=== PATIENT | female | born 1945 | race Caucasian/White ===

== ENCOUNTER 2017-03-09 00:12 | Inpatient (IN) | payer OTHER ==
--- NOTE | 2017-03-09 00:20 | CPEKG ---
Heart Rate: 61 RR Interval: 984 P-R Interval: 200 QRSD Interval: 68 QT Interval: 448 QTC Interval: 452 P [place]: 50 QRS [place]: 32 T Wave [place]: 78 EKG Severity - BORDERLINE ECG - EKG Impression: SINUS RHYTHM EKG Impression: BORDERLINE R WAVE PROGRESSION, ANTERIOR LEADS EKG Impression: MINIMAL ST DEPRESSION, LATERAL LEADS EKG Impression: BORDERLINE ST ELEVATION, c/w STEMI Electronically Signed By: Carlyle Barnard 09-Mar-2017 06:11:46
[2017-03-09] MEDS ORDERED: LIDOCAINE 1% 300 MG/30 ML SDV ONE (00:22)
[2017-03-09] MEDS ORDERED: MIDAZOLAM 2 MG/2 ML VIAL ONE (00:22)
[2017-03-09] MEDS ORDERED: IOPAMIDOL (ISOVUE-370) 150 ML BTL IV ONE (00:22)
[2017-03-09] MEDS ORDERED: fentaNYL 100 MCG/2 ML INJ ONE (00:22)
--- NOTE | 2017-03-09 00:28 | EDPHY ---
H & P Time Seen by Provider: 03/09/17 00:24 HPI/ROS: Chief Complaint: Chest pain HPI: 71-year-old woman who is been in [place] visiting from [facility] for the last 2 days. Tonight when she developed substernal chest pain radiating to her left shoulder in her back. At worst it was at 8 to 9/10. She did have some nausea associated with this. EMS was called and noticed some concerning changes on her ECG. She does not have a history of similar pain in the past. She does not smoke. She does not have a family history of coronary artery disease. No history of hypertension or hyperlipidemia. She was given aspirin 324 mg and nitroglycerin 3 sublingual by EMS. Helicopter was called. They have given her 150 mcg of fentanyl and 4 mg of morphine and started her on a nitroglycerin drip at 50 micrograms/minute. Cardiac alert was activated by EMS. On arrival patient states her pain is a 3/10. Denies any shortness of breath. Pain right now is primarily in her left arm. ROS: 10 point Review of Systems is negative except as noted in the HPI. PMH: GERD, lupus, hypothyroidism Medications: Nexium, Synthroid Allergies: Codeine, epinephrine, penicillin Social History: Has never smoked, rare alcohol, no recreational drug use Family History: Father and mother both of lung cancer in her 60s and 70s. No family history of coronary artery disease. Physical Exam: Gen: Awake, Alert, No Distress HEENT: Nose: no rhinorrhea Eyes: PERRLA, EOMI Mouth: Moist mucosa Neck: Supple, no JVD Chest: nontender, lungs clear to auscultation Heart: S1, S2 normal, no murmur Abd: Soft, non-tender, no guarding Back: no CVA tenderness, no midline tenderness Ext: no edema, non-tender Skin: no rash Neuro: CN II-XII intact, Sensation grossly intact, Strength 5/5 in bilateral upper and lower extremities Constitutional: Initial Vital Signs Temperature (C) 36.8 C 03/09/17 00:12 Heart Rate 66 03/09/17 00:12 Respiratory Rate 16 03/09/17 00:12 Blood Pressure 146/80 H 03/09/17 00:12 O2 Sat (%) 97 03/09/17 00:12 O2 Delivery Mode Nasal Cannula O2 (L/minute) 2 Allergies/Adverse Reactions: codeine Allergy (Verified 03/09/17 00:24) epinephrine Allergy (Verified 03/09/17 00:19) Penicillins Allergy (Verified 03/09/17 00:24) Home Medications: Medication Instructions Recorded Librax (*) 03/09/17 Nexium 03/09/17 Tenormin 25 mg (*) 03/09/17 Medical Decision Making - Diagnostics EKG Interpretation: ECG time 0018, sinus rhythm with a rate of 61, normal axis, there is ST elevation greater than 2 mm in leads V2 through V4 with depression in lead 1 and aVL and V6 consistent with acute STEMI. Imaging Results: Chest x-ray shows some cephalization, aortic arch appears normal, no infiltrate. Interpreted by me. Imaging: I viewed and interpreted images myself ED Course/Re-evaluation: Patient arrived as a cardiac alert. Within tenderness the patient's arrival Dr. juwan jimenez was at the bedside. ECG is noted consistent with an acute anterior infarct. Patient to go to the medical laboratory assistant under Dr. Kemp here. She is artery received aspirin by EMS. Her pain is improved. Departure - Departure Disposition: [facility] Inpatient Acute Clinical Impression: STEMI (ST elevation myocardial infarction) Condition: Serious Referrals: Patient,NotPresent [Primary Care Provider] - As per Instructions
[2017-03-09] MEDS ORDERED: ONDANSETRON 4 MG/2 ML VIAL ONE (00:42)
[2017-03-09] MEDS ORDERED: BIVALIRUDIN 250 MG/5 ML VIAL IV ONE (00:52)
[2017-03-09 00:59] LABS: ANION GAP 15 mEq/L (8-16); CALCIUM 9.4 mg/dL (8.5-10.4); CARBON DIOXIDE 21 mEq/l (22-31); CHLORIDE 109 mEq/L (97-110); CREATININE 0.7 mg/dL (0.6-1.0); GLOMERULAR FILTRATION RATE > 60; GLUCOSE 158 mg/dL (70-100); POTASSIUM 3.5 mEq/L (3.5-5.2); SODIUM 145 mEq/L (134-144)
[2017-03-09 01:05] LABS: INR 1.01 (0.83-1.16); PROTIME(PATIENT) 13.2 SEC (12.0-15.0)
[2017-03-09 01:06] LABS: APTT 28.6 SEC (23.0-38.0)
[2017-03-09 01:12] LABS: % IMMATURE GRANULYOCYTES 0.7 % (0.0-1.1); ABSOLUTE IMMATURE GRANULOCYTES 0.05 10^3/uL (0.00-0.10); ADD DIFF? NO; ADD MORPH? NO; ADD SCAN? NO; ATYPICAL LYMPHOCYTE FLAG 10 (0-99); FRAGMENT RBC FLAG 0 (0-99); HEMATOCRIT 39.8 % (38.0-47.0); HEMOGLOBIN 14.4 g/dL (12.6-16.3); LEFT SHIFT FLG 0 (0-99); LIPEMIA HEMOLYSIS FLAG 90 (0-99); MEAN CELL HEMOGLOBIN 29.8 pg (27.9-34.1); MEAN CELL HEMOGLOBIN CONCENTR. 36.2 g/dL (32.4-36.7); MEAN CELL VOLUME 82.4 fL (81.5-99.8); MEAN PLATELET VOLUME 10.1 fL (8.7-11.7); PLATELET CLUMPS FLAG 0 (0-99); PLATELET COUNT 197 10^3/uL (150-400); RED BLOOD CELL COUNT 4.83 10^6/uL (4.18-5.33); RED CELL DISTRIBUTION WIDTH 13.2 % (11.5-15.2)
[2017-03-09 01:15] LABS: TROPONIN I 0.103 ng/mL (0-0.034)
[2017-03-09] MEDS ORDERED: CLOPIDOGREL BISULFATE 75 MG TAB PO ONE (01:15)
[2017-03-09] MEDS ORDERED: LORazepam 2 MG/ML INJ IVP PRN (01:15)
[2017-03-09] MEDS ORDERED: ATROPINE SULFATE 1 MG/10 ML SYR IVP PRN (01:15)
[2017-03-09] MEDS ORDERED: TEMAZEPAM 15 MG CAP PO PRN (01:15)
[2017-03-09] MEDS ORDERED: NITROGLYCERIN 0.4 MG BTL SL PRN (01:15)
[2017-03-09] MEDS ORDERED: ONDANSETRON 4 MG/2 ML VIAL IVP PRN (01:15)
[2017-03-09] MEDS ORDERED: NS 1,000 ML IV SCH (01:15)
[2017-03-09] MEDS ORDERED: CLOPIDOGREL BISULFATE 75 MG TAB ONE (01:20)
--- NOTE | 2017-03-09 01:23 | PDGENHP ---
History and Physical - Chief Complaint Chest pain - History of Present Illness 71-year-old female no prior cardiovascular history admitted through cardiac alert. Patient was in [facility] today. She has not been feeling well for the last several days. This evening she developed acute onset of substernal chest pressure radiating to the left back and arms. It was associated with nausea vomiting and diaphoresis. She presented to the [facility] Emergency Department where ST segment elevation myocardial infarction was diagnosed. Helicopter was dispatched and brought the patient to [facility]. I met her in the emergency department as part of a cardiac alert activation. On my arrival she has continued to have 8/10 chest discomfort associated with diaphoresis and nausea. Patient denies PND orthopnea. She has had no syncope or near syncope. She has had no palpitations. Cardiac Risk includes hypertension. Allergies: Codeine with rash, Compazine, Demerol, epinephrine. Outpatient medications: TeNormin, Librax, Nexium. History Information - Allergies/Home Medication List Allergies/Adverse Reactions: codeine Allergy (Verified 03/09/17 00:24) epinephrine Allergy (Verified 03/09/17 00:19) Penicillins Allergy (Verified 03/09/17 00:24) Home Medications: Librax (*) 03/09/17 [Last Taken Unknown] Nexium 03/09/17 [Last Taken Unknown] Tenormin 25 mg (*) 03/09/17 [Last Taken Unknown] I have personally reviewed and updated: family history, medical history, social history, surgical history - Past Medical History Additional medical history: Fibromyalgia, lupus, gastritis, esophagitis - Surgical History Reports: appendectomy, cholecystectomy Additional surgical history: oopherectomy - Family History Positive for: non-pertinent - Social History Smoking Status: Never smoked Alcohol Use: Occasionally Review of Systems Constitutional: Reports: malaise, weakness. Denies: chills, fever EENMT: Reports: no symptoms Cardiac: Reports: chest pain. Denies: edema, irregular heart rate, lightheadedness, palpitations Respiratory: Reports: shortness of breath. Denies: cough, stridor, wheezing Gastrointestinal: Reports: vomitting, nausea Genitourinary: Reports: no symptoms Muscolosketal: Reports: no symptoms Skin: Reports: no symptoms Neurological: Reports: no symptoms Hematologic/Lymphatic: Reports: no symptoms Immunologic/Allergy: Reports: no symptoms Physical Exam Temp Pulse Resp BP Pulse Ox 36.8 C 67 16 141/83 H 98 03/09/17 00:12 03/09/17 00:35 03/09/17 00:35 03/09/17 00:35 03/09/17 00:35 O2 (L/minute) 2 Constitutional: uncomfortable Eyes: PERRL, anicteric sclera Ears, Nose, Mouth, Throat: moist mucous membranes Cardiovascular: regular rate and rhythym, pulses symmetric bilaterally, tachycardia, No JVD, No edema Peripheral Pulses: 2+: carotid (R), carotid (L), femoral (R), femoral (L), dorsalis-pedis (R), dorsalis-pedis (L) Respiratory: no respiratory distress, no rales or rhonchi, clear to auscultation Gastrointestinal: normoactive bowel sounds, soft, non-tender abdomen, no palpable masses, No tenderness Genitourinary: no bladder fullness Skin: warm, other (Diaphoretic) Musculoskeletal: full muscle strength, no muscle tenderness Neurologic: AAOx3, sensation intact bilaterally, CN II-XII Intact, No weakness, No numbness, No facial droop Psychiatric: interacting appropriately, anxious Lymph, Heme, Immunologic: no cervical LAD, no supraclavicular LAD Lab Data & Imaging Review 03/09/17 00:30 03/09/17 00:30 WBC 7.59 10^3/uL (3.80-9.50) 03/09/17 00:30 RBC 4.83 10^6/uL (4.18-5.33) 03/09/17 00:30 Hgb 14.4 g/dL (12.6-16.3) 03/09/17 00:30 POC Hgb 12.9 gm/dL (12.6-16.3) 03/09/17 00:12 Hct 39.8 % (38.0-47.0) 03/09/17 00:30 POC Hct 38 % (38-47) 03/09/17 00:12 MCV 82.4 fL (81.5-99.8) 03/09/17 00:30 MCH 29.8 pg (27.9-34.1) 03/09/17 00:30 MCHC 36.2 g/dL (32.4-36.7) 03/09/17 00:30 RDW 13.2 % (11.5-15.2) 03/09/17 00:30 Plt Count 197 10^3/uL (150-400) 03/09/17 00:30 MPV 10.1 fL (8.7-11.7) 03/09/17 00:30 Neut % (Auto) 34.5 % (39.3-74.2) L 03/09/17 00:30 Lymph % (Auto) 53.4 % (15.0-45.0) H 03/09/17 00:30 [place] % (Auto) 9.1 % (4.5-13.0) 03/09/17 00:30 Eos % (Auto) 1.6 % (0.6-7.6) 03/09/17 00:30 Baso % (Auto) 0.7 % (0.3-1.7) 03/09/17 00:30 Nucleat RBC Rel Count 0.0 % (0.0-0.2) 03/09/17 00:30 Absolute Neuts (auto) 2.63 10^3/uL (1.70-6.50) 03/09/17 00:30 Absolute Lymphs (auto) 4.05 10^3/uL (1.00-3.00) H 03/09/17 00:30 Absolute Monos (auto) 0.69 10^3/uL (0.30-0.80) 03/09/17 00:30 Absolute Eos (auto) 0.12 10^3/uL (0.03-0.40) 03/09/17 00:30 Absolute Basos (auto) 0.05 10^3/uL (0.02-0.10) 03/09/17 00:30 Absolute Nucleated RBC 0.00 10^3/uL (0-0.01) 03/09/17 00:30 Immature Gran % 0.7 % (0.0-1.1) 03/09/17 00:30 Immature Gran # 0.05 10^3/uL (0.00-0.10) 03/09/17 00:30 PT 13.2 SEC (12.0-15.0) 03/09/17 00:30 INR 1.01 (0.83-1.16) 03/09/17 00:30 APTT 28.6 SEC (23.0-38.0) 03/09/17 00:30 POC Sodium 145 mEq/L (134-144) H 03/09/17 00:12 Sodium 145 mEq/L (134-144) H 03/09/17 00:30 POC Potassium 3.4 mEq/L (3.3-5.0) 03/09/17 00:12 Potassium 3.5 mEq/L (3.5-5.2) 03/09/17 00:30 POC Chloride 108 mEq/L (97-110) 03/09/17 00:12 Chloride 109 mEq/L (97-110) 03/09/17 00:30 Carbon Dioxide 21 mEq/l (22-31) L 03/09/17 00:30 Anion Gap 15 mEq/L (8-16) 03/09/17 00:30 POC BUN 17 mg/dL (7-23) 03/09/17 00:12 BUN 16 mg/dL (7-23) 03/09/17 00:30 Creatinine 0.7 mg/dL (0.6-1.0) 03/09/17 00:30 POC Creatinine 0.6 mg/dL (0.6-1.0) 03/09/17 00:12 Estimated GFR > 60 03/09/17 00:30 Glucose 158 mg/dL (70-100) H 03/09/17 00:30 POC Glucose 157 mg/dL (70-100) H 03/09/17 00:12 Calcium 9.4 mg/dL (8.5-10.4) 03/09/17 00:30 Troponin I 0.103 ng/mL (0-0.034) H 03/09/17 00:30 Visualized and Interpreted Chest x-ray results: Yes Chest X-Ray results: no infiltrate Visualized and Interpreted EKG results: Yes EKG Interpretation: Positive for: ST elevation (Anteriorly) Assessment & Plan Assessment: STEMI (ST elevation myocardial infarction) (Acute) Impression: Acute anterior wall myocardial infarction currently hemodynamically stable with abnormal EKG and ongoing pain. Plan: Direct cardiac catheterization. Aggressive secondary prevention. Risks and benefits were discussed with the patient including option for medical therapy. She wishes to proceed. I am in agreement
--- NOTE | 2017-03-09 01:32 | PDDXCAT ---
Diagnostic Cath Note - . Date: 03/09/17 Director Of Purchasing: Mayito Indication: other (STEMI) - Procedure Procedure: left heart catheterization, coronary angiography, left ventriculogram - Materials Left Heart Cath size: 7F Left Heart Cath materials: standard multipack (JL4, JR4, pigtail) - Findings-Left Heart Catheterization LM: Unobstructed LAD: 100% occluded after principal diagonal LCX: 90% occlusion proximally RCA: Dominant: Luminal irregularities EDP: 30 mm of mercury LVEF: 35% Wall motion: Anterior apical dyskinesis Complications: None Estimated blood loss: <50ml Closure method: Angioseal Assessment: ST segment elevation myocardial infarction with thrombotic occlusion of the LAD and critical stenosis of the circumflex. Ischemic cardiomyopathy ejection fraction 35% with anteroapical dyskinesis. Elevated filling pressures secondary to above. Plan: PCI Intervention: Procedure: PCI and stenting of the LAD. PCI and stenting of the circumflex. After reviewing diagnostic angiograms like to proceed with emergency PCI. Patient was anticoagulated with Angiomax. Therapeutic ACT was confirmed. Using a 7 Thai JL 3.5 guiding catheter left main coronary was selectively intubated. Using a 0.014 luge wire the LAD stenosis was crossed. With a 2.5 mm balloon single inflation was performed reestablishing antegrade flow. It was elected to proceed with stenting at 3.0 x 38 mm synergy stent was placed across the lesion. It was deployed using a single inflation. Repeat angiograms revealed MIGDALIA grade 3 flow without compromise of the diagonal. Wire was withdrawn. Using a 0.014 luge wire the circumflex stenosis was crossed. Was primarily stented with a 2.75 x 16 mm synergy stent. Repeat angiogram showed MIGDALIA grade 3 flow. Pigtail catheter was used to perform left ventriculogram. The patient experienced AIVR which was well tolerated. Conclusions: Anterior wall STEMI myocardial infarction status post successful PCI and stenting of the LAD and circumflex. Plan for care in the ICU with aggressive secondary prevention. Patient Problems: Problems Problem Status Onset STEMI (ST elevation myocardial infarction) Acute
[2017-03-09] MEDS: METOPROLOL TARTRATE 50 MG TAB PO SCH ×3 (02:13→20:18)
--- NOTE | 2017-03-09 02:25 | CPEKG ---
Heart Rate: 77 RR Interval: 779 P-R Interval: 212 QRSD Interval: 72 QT Interval: 408 QTC Interval: 462 P [place]: 53 QRS [place]: 11 T Wave [place]: 59 EKG Severity - ABNORMAL ECG - EKG Impression: SINUS RHYTHM EKG Impression: ANTERIOR INFARCT, RECENT Electronically Signed By: Nazario Clements 09-Mar-2017 10:05:18
[2017-03-09] MEDS ORDERED: NS W/ 20 KCl/L 1,000 ML IV SCH (02:30)
[2017-03-09 02:43] LABS: CK-MB INTERPRETATION POSITIVE (NEGATIVE)
[2017-03-09 05:38] LABS: % IMMATURE GRANULYOCYTES 0.5 % (0.0-1.1); ABSOLUTE IMMATURE GRANULOCYTES 0.05 10^3/uL (0.00-0.10); ADD DIFF? NO; ADD MORPH? NO; ADD SCAN? NO; ATYPICAL LYMPHOCYTE FLAG 0 (0-99); FRAGMENT RBC FLAG 0 (0-99); HEMATOCRIT 42.6 % (38.0-47.0); HEMOGLOBIN 15.1 g/dL (12.6-16.3); LEFT SHIFT FLG 0 (0-99); LIPEMIA HEMOLYSIS FLAG 90 (0-99); MEAN CELL HEMOGLOBIN 29.5 pg (27.9-34.1); MEAN CELL HEMOGLOBIN CONCENTR. 35.4 g/dL (32.4-36.7); MEAN CELL VOLUME 83.2 fL (81.5-99.8); MEAN PLATELET VOLUME 9.8 fL (8.7-11.7); PLATELET CLUMPS FLAG 0 (0-99); PLATELET COUNT 196 10^3/uL (150-400); RED BLOOD CELL COUNT 5.12 10^6/uL (4.18-5.33); RED CELL DISTRIBUTION WIDTH 13.3 % (11.5-15.2)
[2017-03-09 06:22] LABS: ALANINE AMINOTRANSFERASE 72 IU/L (9-52); ALKALINE PHOSPHATASE 93 IU/L (38-126); ANION GAP 11 mEq/L (8-16); ASPARTATE AMINOTRANSFERASE 267 IU/L (14-46); BILIRUBIN,TOTAL 1.1 mg/dL (0.1-1.4); BILIRUBIN-CONJUGATED 0.4 mg/dL (0.0-0.5); BILIRUBIN-UNCONJUGATED 0.7 mg/dL (0.0-1.1); CALCIUM 9.1 mg/dL (8.5-10.4); CARBON DIOXIDE 23 mEq/l (22-31); CHLORIDE 109 mEq/L (97-110); CHOLESTEROL 204 mg/dL (140-220); CHOLESTEROL/HDL RATIO 4.64 RATIO (1.00-4.44); CREATININE 0.7 mg/dL (0.6-1.0); GLOMERULAR FILTRATION RATE > 60; GLUCOSE 161 mg/dL (70-100); HIGH DENSITY LIPOPROTEIN 44 mg/dL (40-85); LACTATE DEHYDROGENASE 1381 IU/L (313-618); LDL/HDL RATIO 2.82 RATIO (1.00-3.22); LOW DENSITY LIPOPROTEIN 124 mg/dL (80-100); MAGNESIUM 1.8 mg/dL (1.6-2.3); NON-HIGH DENSITY LIPOPROTEIN 160 mg/dL (90-129); SODIUM 143 mEq/L (134-144); TOTAL PROTEIN 6.7 g/dL (6.3-8.2); TRIGLYCERIDE 181 mg/dL (35-135); VERY LOW DENSITY LIPOPROTEINS 36 mg/dL (8-25)
[2017-03-09 06:49] LABS: CK-MB INTERPRETATION POSITIVE (NEGATIVE)
[2017-03-09] MEDS: ATORVASTATIN CALCIUM 40 MG TAB PO SCH (08:45)
[2017-03-09] MEDS: ASPIRIN EC 325 MG TAB PO SCH (08:46)
[2017-03-09] MEDS: FAMOTIDINE 20 MG TAB PO SCH ×2 (08:46→20:18)
[2017-03-09] MEDS: LISINOPRIL 10 MG TAB PO SCH (08:46)
[2017-03-09] MEDS: EPLERENONE 25 MG TAB PO SCH (08:46)
[2017-03-09 08:59] LABS: CK-MB INTERPRETATION POSITIVE (NEGATIVE)
--- NOTE | 2017-03-09 09:09 | CPEKG ---
Heart Rate: 71 RR Interval: 845 P-R Interval: 196 QRSD Interval: 62 QT Interval: 404 QTC Interval: 439 P [place]: 56 QRS [place]: 9 T Wave [place]: 58 EKG Severity - ABNORMAL ECG - EKG Impression: SINUS RHYTHM EKG Impression: ANTERIOR INFARCT, RECENT Electronically Signed By: Nazario Clements 09-Mar-2017 10:05:35
[2017-03-09 09:33] LABS: HEMOGLOBIN A1C 5.6 % (4.0-6.0)
[2017-03-09 14:18] LABS: CK-MB INTERPRETATION POSITIVE (NEGATIVE)
--- NOTE | 2017-03-09 14:35 | SOAPPROG ---
[facility] Progress Note Assessment/Plan: Assessment: 1. ST segment elevation myocardial infarction status post PCI and stenting of the LAD. 2. Mild ischemic cardiomyopathy ejection fraction 40% status post 2 vessel PCI 3. Hyperlipidemia. 4. Hypertension. Procedures to date: 03/09/17: Left heart catheterization coronary ventricular angiography with PCI of the LAD and obtuse marginal branch. Echocardiogram Impression: Day 1 status post anterior wall myocardial infarction with successful PCI and stenting of the circumflex and LAD. Patient is doing well on it so far has an uncomplicated course with stable vital signs. She has had no further angina. Plan: Telemetry monitoring. Optimization of medical therapy. 03/09/17 14:32 Subjective: Tired but overall feeling better. No chest pain, PND, orthopnea. No syncope or palpitations. Objective: Medications Generic Name Dose Route Start Last Admin Trade Name Freq PRN Reason Stop Dose Admin Metoprolol Tartrate 50 mg 03/09/17 01:15 03/09/17 08:46 Lopressor PO 09/05/17 01:14 50 mg BID [facility] Aspirin Buffered 325 mg 03/09/17 09:00 03/09/17 08:46 Aspirin Ec PO 09/05/17 08:59 325 mg DAILY [facility] Atorvastatin Calcium 80 mg 03/09/17 09:00 03/09/17 08:45 Lipitor PO 09/05/17 08:59 80 mg DAILY [facility] Clopidogrel Bisulfate 75 mg 03/10/17 09:00 Plavix PO 09/06/17 08:59 DAILY [facility] Eplerenone 25 mg 03/09/17 09:00 03/09/17 08:46 Inspra PO 09/05/17 08:59 25 mg DAILY [facility] Lisinopril 10 mg 03/09/17 09:00 03/09/17 08:46 Zestril PO 09/05/17 08:59 10 mg DAILY [facility] Vital Signs Temp Pulse Resp BP Pulse Ox 36.8 C 71 16 105/54 L 98 03/09/17 12:00 03/09/17 12:00 03/09/17 12:00 03/09/17 12:00 03/09/17 12:00 Laboratory Results 03/09/17 05:15 03/09/17 05:15 03/08/17 03/09/17 03/10/17 05:59 05:59 05:59 Intake Total 220 Output Total 300 Balance -80 PT 13.2 SEC (12.0-15.0) 03/09/17 00:30 INR 1.01 (0.83-1.16) 03/09/17 00:30 Laboratory Tests 03/09/17 03/09/17 03/09/17 01:50 05:15 05:15 Creatine Kinase 1283 H 2494 H Troponin I 24.900 H 56.900 H NT-Pro-B Natriuret Pep 757 H LDL Cholesterol, Calc 124 H 03/09/17 03/09/17 08:00 10:15 Creatine Kinase 1594 H 1529 H Troponin I 51.200 H 55.400 H NT-Pro-B Natriuret Pep LDL Cholesterol, Calc ICD10 Worksheet Patient Problems: Problems Problem Status Onset Chronic Disease Mgmt/Transitional Care Acute STEMI (ST elevation myocardial infarction) Acute Review of Systems - Review of Systems Constitutional: malaise. denies: chills, fever EENTM: no symptoms reported Respiratory: no symptoms reported Cardiac: no symptoms reported Gastrointestinal/Abdominal: no symptoms reported Genitourinary: no symptoms Musculoskelatal: no symptoms Skin: no symptoms Neurological: no symptoms Hematologic/Lymphatic: no symptoms reported Immunologic/allergic: no symptoms reported
[2017-03-10 05:30] LABS: CK-MB INTERPRETATION NEGATIVE (NEGATIVE)
[2017-03-10] MEDS: METOPROLOL TARTRATE 50 MG TAB PO SCH ×2 (08:21→21:58)
[2017-03-10] MEDS: ASPIRIN EC 325 MG TAB PO SCH (08:22)
[2017-03-10] MEDS: EPLERENONE 25 MG TAB PO SCH (08:22)
[2017-03-10] MEDS: CLOPIDOGREL BISULFATE 75 MG TAB PO SCH (08:23)
[2017-03-10] MEDS: ATORVASTATIN CALCIUM 40 MG TAB PO SCH (08:23)
[2017-03-10] MEDS: FAMOTIDINE 20 MG TAB PO SCH ×2 (08:23→22:01)
[2017-03-10] MEDS: LISINOPRIL 10 MG TAB PO SCH (08:24)
--- NOTE | 2017-03-10 08:44 | CPEKG ---
Heart Rate: 74 RR Interval: 811 P-R Interval: 192 QRSD Interval: 58 QT Interval: 404 QTC Interval: 449 P [place]: 66 QRS [place]: 7 T Wave [place]: 93 EKG Severity - ABNORMAL ECG - EKG Impression: SINUS RHYTHM EKG Impression: ANTERIOR INFARCT, AGE INDETERMINATE Electronically Signed By: Nazario Clements 10-Mar-2017 09:21:20
[2017-03-10] MEDS ORDERED: NITROFURANTOIN MACROBID 100 MG CAP PO PRN (10:07)
--- NOTE | 2017-03-10 10:11 | SOAPPROG ---
[facility] Progress Note Assessment/Plan: Assessment: 1. ST segment elevation myocardial infarction status post PCI and stenting of the LAD. 2. Mild ischemic cardiomyopathy ejection fraction 40% status post 2 vessel PCI 3. Hyperlipidemia. 4. Hypertension. 5. Hypothyroidism Procedures to date: 03/09/17: Left heart catheterization coronary ventricular angiography with PCI of the LAD and obtuse marginal branch. Echocardiogram Impression: Day 1 status post anterior wall myocardial infarction with successful PCI and stenting of the circumflex and LAD. Patient is doing well on it so far has an uncomplicated course with stable vital signs. She has had no further angina. Plan: Telemetry monitoring. Optimization of medical therapy. Impression: Day 2 status post anterior wall myocardial infarction. Course continues to remain uncomplicated. He she is feeling markedly improved with stable vital signs. Plan: Transfer to telemetry. Phase 1 cardiac rehabilitation. Results discussed with the patient and her family. Resume outpatient thyroidal medications. 03/09/17 14:32 03/10/17 10:08 Subjective: Feeling much better today. Nausea has resolved. No shortness of breath PND orthopnea. No further chest pain. Her family has arrived from [place]. Objective: Vital Signs Temp Pulse Resp BP Pulse Ox 36.8 C 74 14 109/65 98 03/10/17 04:00 03/10/17 08:21 03/10/17 04:00 03/10/17 08:24 03/10/17 04:00 Laboratory Results 03/09/17 05:15 03/09/17 05:15 03/09/17 03/10/17 03/11/17 05:59 05:59 05:59 Intake Total 220 1047 Output Total 300 Balance -80 1047 PT 13.2 SEC (12.0-15.0) 03/09/17 00:30 INR 1.01 (0.83-1.16) 03/09/17 00:30 Physical Exam - Physical Exam General Appearance: no apparent distress EENT: PERRL/EOMI, normal ENT inspection Neck: non-tender, full range of motion Respiratory: chest non-tender, lungs clear, normal breath sounds Cardiac/Chest: normal peripheral pulses, regular rate, rhythm, No edema, No JVD Peripheral Pulses: 1+: carotid (R), carotid (L), 2+: femoral (R), femoral (L) Abdomen: normal bowel sounds, non-tender, soft Back: Normal inspection Skin: normal color, warm/dry, No rash Lymphatic: no adenopathy Extremities: normal range of motion, No pedal edema, No calf tenderness Neuro/Psych: no motor/sensory deficits, normal mood/affect, No facial droop ICD10 Worksheet Patient Problems: Problems Problem Status Onset Chronic Disease Mgmt/Transitional Care Acute STEMI (ST elevation myocardial infarction) Acute Review of Systems - Review of Systems Constitutional: no symptoms reported EENTM: no symptoms reported Respiratory: no symptoms reported Cardiac: no symptoms reported Gastrointestinal/Abdominal: no symptoms reported Genitourinary: no symptoms Musculoskelatal: no symptoms Skin: no symptoms Neurological: no symptoms Hematologic/Lymphatic: no symptoms reported Immunologic/allergic: no symptoms reported
[2017-03-10] MEDS ORDERED: COMPOUNDED THYROID PO SCH (10:15)
--- NOTE | 2017-03-10 10:21 | ECHO ---
[id number] + + [address] : : [place] [address] : : [phone] + + Adult Echocardiographic Report + + :Name: HENNY RODRIGUEZ Date: 03/09/2017 08:13 AM : : Hospital Admission Number: [id number] Lo cation: 254: :: 1945 Gender: Female Height: 65 in : :Age: 71 yrs Race: WH Weight: 16 2 lb : :Reason For Study: Eval LV Fx : : BSA: 1.8 m eters2 : :History: Post STEMI : + + MMode/2D Measurements \T\ Calculations IVSd: 0.73 cm LVIDd: 4.3 cm FS: 21.4 % Ao root diam: 2.8 cm LVPWd: 0.88 cm LVIDs: 3.3 cm EDV(Teich): 81.2 ml ACS: 1.7 cm ESV(Teich): 45.7 ml EF(Teich): 43.7 % Normal Measurement Values: + + :LVIDd (3.5-5.7cm) IVSd (0.6-1.1cm) LVPWd (0.6-1.1cm) Aortic Root (2.0-3.7cm)Left Atrium (1.5-4.0cm): :LV Vol(d) (76-115ml) LV Vol(s) (29-48ml) Ejec Fraction (50-65%)PV Devin (0.6- 1.2m/s) TV Devin (0.4-1.0m/s) : :MV E Devin (0.8-1.0m/s)MV A Devin (0.3-1.0m/s)LVOT Devin (0.7-1.2m/s) Asc Ao Devin ( 0.9-1.8m/s) : + + Doppler Measurements \T\ Calculations MV E max devin: Ao V2 max: LV V1 max: MR max devin: 86.4 cm/sec 119.4 cm/sec 90.3 cm/sec 358.3 cm/sec MV A max devin: Ao max PG: LV V1 max PG: MR max P.9 cm/sec 5.7 mmHg 3.3 mmHg 51.4 mmHg MV E/A: 0.69 PA V2 max: 97.7 cm/sec PA max P.8 mmHg Left Ventricle The left ventricle is normal in size. There is normal left ventricular wall thickness. Ejection Fraction = 40-45%. There is Doppler evidence for diastolic dysfunction. There is basilar to mid anteroseptal akinesis. There is apical akinesis. Right Ventricle The right ventricle is normal in size and function. Atria The left atrial size is normal. Right atrial size is normal. Mitral Valve The mitral valve is normal in structure and function. There is no mitral valve stenosis. There is trace mitral regurgitation. Tricuspid Valve The tricuspid valve is normal in structure and function. No tricuspid regurgitation. Aortic Valve The aortic valve is normal in structure and function. The aortic valve opens well. There is no aortic stenosis. There is no aortic insufficiency. Pulmonic Valve The pulmonic valve is normal in structure and function. There is no pulmonic valvular regurgitation. Great Vessels The aortic root is normal size. Pericardium/Pleural There is no pericardial effusion. Conclusion A complete two-dimensional transthoracic echocardiogram was performed (2D, M-mode, Doppler and color flow Doppler). Ejection Fraction = 40-45%. There is Doppler evidence for diastolic dysfunction. There is basilar to mid anteroseptal akinesis. There is apical akinesis. The right ventricle is normal in size and function. The mitral valve is normal in structure and function. There is trace mitral regurgitation. The tricuspid valve is normal in structure and function. The aortic valve is normal in structure and function. There is no pericardial effusion. Final Reading Physician: Bg P HairstonZaire sy signed on 03/10/2017 10:20 AM Ordering Physician: BG HAIRSTON Performed By: Steven Ennis, GEOVANNYCS
[2017-03-10] MEDS: COMPOUNDED THYROID PO SCH (13:43)
[2017-03-10] MEDS ORDERED: PROBIOTIC PO PRN (18:39)
[2017-03-10 20:57] VITALS: RESP 16
[2017-03-11] MEDS: COMPOUNDED THYROID PO SCH (04:41)
[2017-03-11] MEDS: CLOPIDOGREL BISULFATE 75 MG TAB PO SCH (08:27)
[2017-03-11] MEDS: ASPIRIN EC 325 MG TAB PO SCH (08:27)
[2017-03-11] MEDS: LISINOPRIL 10 MG TAB PO SCH (08:27)
[2017-03-11] MEDS: METOPROLOL TARTRATE 50 MG TAB PO SCH (08:27)
[2017-03-11] MEDS: EPLERENONE 25 MG TAB PO SCH (08:31)
[2017-03-11] MEDS: FAMOTIDINE 20 MG TAB PO SCH (08:31)
[2017-03-11] MEDS: ATORVASTATIN CALCIUM 40 MG TAB PO SCH (08:32)
[2017-03-11 09:07] VITALS: TEMP 98.1; O2SAT 95
[2017-03-11 12:23] VITALS: BP 117/64; PULSE 70
--- NOTE | 2017-03-12 01:16 | GDS ---
[f rep st] DISCHARGE SUMMARY DISCHARGE DIAGNOSES: 1. ST-elevation myocardial infarction, status post PCI and stenting to the LAD and left circumflex. 2. Mild ischemic cardiomyopathy with NYHA functional class 1-2 symptoms. 3. Dyslipidemia. 4. Hypertension. 5. Fibromyalgia. 6. Lupus. 7. Gastritis. 8. Esophagitis. PROCEDURES: 1. 03/09/2017, chest x-ray, which is negative. 2. 03/09/2017, left heart catheterization, which showed a 100% occluded LAD after the principal chelsea gonal and a 90% circumflex occlusion proximally with anterior apical dyskinesis, LVEF of 35%, and an LVEDP of 30 mmHg. She was treated with PTCA and stenting to the LAD with a 3.0 x 38 Synergy stent. A 2.75 x 16 mm Synergy stent was placed in the left circumflex lesion. 3. 03/09/2017 echo, which showed EF of 40% to 45%. Diastolic dysfunction, basilar to mid anterosep ole akinesis, and apical akinesis. Normal RV size and function, normal mitral valve structure and f unction, trace MR, normal tricuspid valve structure and function, normal aortic valve structure and function. PHYSICIANS: Dr. Edmond. CONSULTATIONS: None. BRIEF HISTORY: Please see dictated H and P by Dr. Edomnd for complete details. In brief, the dick hough is a 71-year-old female with a past medical history of migraines, hypertension, lupus, chronic pain, who is visiting from [place], [place]. She was in [facility] and was brought in via helicopter after noting chest pain. EMS arrived and noted ST-elevation. HOSPITAL COURSE BY PROBLEM: 1. ST-elevation PR. She was found to have an occluded LAD that was treated with PTCA and stenting. She also had critical disease in the proximal left circumflex, also treated with PTCA and stenting . She has been started on dual antiplatelet therapy with aspirin and Plavix. 2. Ischemic cardiomyopathy. Her EF is 40% to 45% after her PR. She has been started on lisinopril . Her atenolol has been changed to metoprolol. She has been started on eplerenone for reduction of heart failure symptoms. RESULTS PENDING: None. PHYSICAL EXAMINATION: VITAL SIGNS: On day of discharge, blood pressure 126/67, heart rate 75, resp irations 16, O2 saturation 95% on room air, temp of 98.1 degrees Fahrenheit. GENERAL: She is a daniel y pleasant female, in no apparent distress. HEAD: Normocephalic atraumatic. EYES: PERRL. HEART: Regular rate and rhythm. LUNGS: Clear. ABDOMEN: Soft. Right groin site without any ecchymosis . EXTREMITIES: She has 2+ PT and DP pulses. No peripheral edema. PSYCHIATRIC: Normal mood and af fect. LABORATORY DATA: CBC with WBC 9.96, hemoglobin 15, hematocrit 42.6, platelet count 196. BMP with s odium 143, potassium 4, chloride 109, CO2 of 23, BUN 13, creatinine 0.7, glucose 161. Hemoglobin A1 c of 5.6. Total cholesterol 204, triglycerides 181, LDL cholesterol 124, HDL 44. Peak troponin of 56.9. Troponin 36.6 on day of discharge. ACTIVITY: Groin precautions were reviewed. She was advised to start cardiac rehab when she gets to [place]. DISCHARGE MEDICATIONS: Please see med reconciliation for complete details. She can continue her ho me Lomotil, Flexeril, Macrobid, thyroid compounded, Nexium, Librax. She has been started on Lopress or 50 mg p.o. b.i.d., lisinopril 10 mg p.o. daily, eplerenone 25 mg p.o. daily, Voltaren gel, Plavix 75 mg p.o. daily, atorvastatin 80 mg p.o. daily, aspirin 81 mg p.o. daily. She was advised to stop ibuprofen. Her atenolol has been discontinued. DISCHARGE INSTRUCTIONS: 1. Establish cardiology upon return to [place]. 2. Follow up with PCP in 1-2 weeks. 3. Groin precautions as dictated above. Please note that greater than 30 minutes were spent on discharge and coordination of care. /[id number]/MODL
== END 2017-03-11 14:25 | disposition home or self-care (01) | DRG 247 ==
LOC: F2N 01:02 → F2W 03-10 11:41
PROVIDERS: ADMIT Internal Medicine Interventional Cardiology; ATTEND Internal Medicine Interventional Cardiology
PROC: B2111ZZ Fluoroscopy of Multiple Coronary Arteries using Low Osmolar Contrast (ICD-10-PCS; principal; 2017-03-09)
PROC: B2151ZZ Fluoroscopy of Left Heart using Low Osmolar Contrast (ICD-10-PCS; principal; 2017-03-09)
PROC: 4A023N7 Measurement of Cardiac Sampling and Pressure, Left Heart, Percutaneous Approach (ICD-10-PCS; principal; 2017-03-09)
PROC: 027034Z Dilation of Coronary Artery, One Artery with Drug-eluting Intraluminal Device, Percutaneous Approach (ICD-10-PCS; principal; 2017-03-09)
DX: I21.09 ST elevation (STEMI) myocardial infarction involving other coronary artery of anterior wall (principal); E78.5 Hyperlipidemia, unspecified; I10 Essential (primary) hypertension; M79.7 Fibromyalgia; M32.9 Systemic lupus erythematosus, unspecified; K29.70 Gastritis, unspecified, without bleeding; K20.9 Esophagitis, unspecified; I25.5 Ischemic cardiomyopathy; E03.9 Hypothyroidism, unspecified; K21.9 Gastro-esophageal reflux disease without esophagitis; Z80.1 Family history of malignant neoplasm of trachea, bronchus and lung
CPT/HCPCS: 82947-QW; C1725; C1760; C1769; C1874; C1887; C9600; C9606; J0583; J1200; J1644; J2250; J2405; J3010; Q9967